=== PATIENT | female | born 1985 | race Caucasian/White ===

== ENCOUNTER 2018-05-20 18:44 | Emergency (ER) | payer MEDICAID ==
[~2018-05-20] VITALS: Ht 177.8 cm; Wt 75.0 kg
[2018-05-20] MEDS ORDERED: KETOROLAC 30 MG/1 ML IM ONE (19:00)
--- NOTE | 2018-05-20 19:00 | NUR ---
REPORT RECEIVED AND CARE ASSUMED. ERP AT BEDSIDE TO EVAL.
--- NOTE | 2018-05-20 19:05 | NUR ---
LAB AT BEDSIDE TO DRAW.
[2018-05-20] MEDS ORDERED: KETOROLAC 30 MG/1 ML ONE (19:12)
[2018-05-20 19:14] LABS: BASOPHILS # (AUTO) 0.03 x10^3/uL (0-0.1); BASOPHILS % (AUTO) 0 % (0-1); EOSINOPHILS # (AUTO) 0.09 x10^3/uL (0-0.4); EOSINOPHILS % (AUTO) 1 % (1-7); LYMPHOCYTES % (AUTO) 38 % (22-44); MD NO; MEAN CORPUSCULAR HEMOGLOBIN 30.4 pg (27.0-34.8); MEAN CORPUSCULAR HGB CONC 33.9 g/dL (32.4-35.8); MEAN CORPUSCULAR VOLUME 89.7 fL (80-100); MEAN PLATELET VOLUME 8.1 fL (7.4-10.4); MONOCYTES # (AUTO) 0.67 x10^3/uL (0.2-0.8); MONOCYTES % (AUTO) 8 % (2-9); NEUTROPHILS # (AUTO) 4.42 x10^3/uL (1.8-6.8); NEUTROPHILS % (AUTO) 53 % (42-75); PLATELET COUNT 345 x10^3/uL (130-400); RED BLOOD COUNT 4.45 x10^6/uL (3.82-5.3); RED CELL DISTRIBUTION WIDTH 13.2 % (9.6-15.2)
--- NOTE | 2018-05-20 19:14 | NUR ---
PT IN XRAY VIA GURNEY. TO BE ASSESSED AND MEDICATED UPON RETURN.
[2018-05-20 19:24] LABS: ALBUMIN 3.5 g/dL (3.4-5.0); ANION GAP 6 mmol/L (5-15); CALCIUM 8.5 mg/dL (8.5-10.1); CHLORIDE 105 mmol/L (98-107); CREATININE 0.75 mg/dL (0.55-1.02)
[2018-05-20] MEDS ORDERED: CYMBALTA PEG (19:35)
[2018-05-20] MEDS ORDERED: PROZAC PO (19:35)
--- NOTE | 2018-05-20 19:36 | NUR ---
PT BACK FROM RADIOLOGY. MEDICATED PER JUN--PT DOES HAVE ASA ALLERGY BUT STATES SHE OFTEN TAKES NSAIDS WITH NO REACTION. PT SINUS TACH ON MONITOR. A&OX4. PUPILS RAQUEL. [employer] MECH[employer]IC EQUAL. BED ADJUSTED FOR COMFORT. CALL LIGHT IN REACH.
--- NOTE | 2018-05-20 19:45 | NUR ---
ERP AT BEDSIDE TO RECHECK.
[2018-05-20] MEDS ORDERED: ACETAMINOPHEN 325 MG TABLET ONE (20:04)
--- NOTE | 2018-05-20 20:10 | NUR ---
ATTEMPTING TO D/C PT HOME. PT REQUESTING PAIN MEDS FOR MONTOYA AT THIS TIME. DISCUSSED WITH ERP AND ORDER FOR TYLENOL RECEIVED. PT MEDICATED PER JUN. PT TO BE D/C TO PRISON.
[2018-05-20 20:19] VITALS: BP 113/65
[2018-05-20] MEDS ORDERED: ACETAMINOPHEN 325 MG TABLET PO ONE (20:30)
== END 2018-05-20 20:41 | disposition home or self-care (01) ==
LOC: ED 19:54
DX: R55 Syncope and collapse (principal); F10.10 Alcohol abuse, uncomplicated; F12.10 Cannabis abuse, uncomplicated; F15.10 Other stimulant abuse, uncomplicated; F17.210 Nicotine dependence, cigarettes, uncomplicated
CPT/HCPCS: 36415; 71045; 72110; 72220; 80048; 82040; 84703; 85025; 93005; 96372; 99284; 99406; J1885